=== PATIENT | female | born 1965 ===

== ENCOUNTER 2017-08-24 06:49 | Day surgery (SDC) | payer SELFPAY ==
[~2017-08-24 06:49] MED LIST: Buffered Lidocaine 0.9% SYRIN* 5 ML/SYR SYRINGE INTRADERM ONE; Sodium Citrate/Citric Acid* 15 ML UDC ONE; Sodium Citrate/Citric Acid* 15 ML UDC PO ONE
[2017-08-24] MEDS ORDERED: ceFAZolin 2 GM PREMIX (*) 2 GM/50 ML BAG IVPB ONE (07:15)
[2017-08-24] MEDS ORDERED: Dexamethasone IV* 4 MG/ML 1 ML (4 MG) ONE (07:15)
[2017-08-24] MEDS ORDERED: Scopolamine 1.5 mg* PATCH ONE (07:15)
[2017-08-24] MEDS ORDERED: Ondansetron INJ* 2 MG/ML VIAL ONE (07:15)
[2017-08-24] MEDS ORDERED: ceFAZolin 1 GM VIAL(*) ONE (07:17)
[2017-08-24] MEDS ORDERED: Povidone Iodine 5% OPTH* 30 ML BTL ONE (07:18)
[2017-08-24] MEDS ORDERED: Bacitracin IV* 50,000 UNITS INJ ONE (07:18)
[2017-08-24] MEDS ORDERED: Gentamicin ADULT (*) 40 MG/ML VIAL ONE (07:18)
[2017-08-24] MEDS ORDERED: Propofol* 10 MG/ML 20 ML BTL IV PUSH ONE (07:35)
[2017-08-24] MEDS ORDERED: Lidocaine 2% PF * 5 ML VIAL ONE (07:35)
[2017-08-24] MEDS ORDERED: fentaNYL* 50 MCG/ML 2 ML VIAL (100 MCG VIAL) ONE ×2 (07:36→10:22)
[2017-08-24] MEDS ORDERED: HYDROcodone/ACETAMIN 5-325 MG* 1 TAB ONE (10:22)
[2017-08-24] MEDS: fentaNYL* 50 MCG/ML 2 ML VIAL (100 MCG VIAL) IV PRN ×2 (10:23→10:32)
[2017-08-24 11:10] VITALS: BP 118/75
== END 2017-08-24 11:12 | disposition home or self-care (01) ==
LOC: OREAST 06:49
PROVIDERS: ATTEND Plastic Surgery
DX: T85.41XA Breakdown (mechanical) of breast prosthesis and implant, initial encounter (principal); T85.44XA Capsular contracture of breast implant, initial encounter; Y81.2 Prosthetic and other implants, materials and accessory general- and plastic-surgery devices associated with adverse incidents; E78.00 Pure hypercholesterolemia, unspecified; E03.9 Hypothyroidism, unspecified; Z87.891 Personal history of nicotine dependence
CPT/HCPCS: 88300; 88305; A9270-GY; J0690; J1100; J1580; J2405; J2704; J3010